=== PATIENT | male | born 1935 | race Caucasian/White ===

== ENCOUNTER 2017-02-10 16:54 | Emergency (ER) | payer MEDICARE, OTHER ==
[2017-02-10 18:03] LABS: BASOPHIL 0.7 % (0-2); EOSINOPHIL 0.3 % (0-7); HCT 32.2 % (42.0-52.0); HGB 10.7 g/dl (13.2-18.0); LYMPHOCYTE 23.2 % (15-48); MCH 32.5 pg (25.0-31.0); MCHC 33.2 g/dL (32.0-36.0); MCV 97.9 fL (78.0-100.0); MONOCYTE 12.6 % (0-12); MPV 10.1 fL (6.0-9.5); NEUTROPHIL 63.2 % (41-80); PLT 171 K/uL (150-400); RBC 3.29 M/uL (4.70-6.00); RDW 17.4 % (11.5-14.0); WBC 6.7 K/uL (4.0-10.5)
[2017-02-10 18:22] LABS: ALBUMIN 2.8 g/dL (3.4-4.8); BILIRUBIN - TOTAL 0.7 mg/dL (0.1-1.0); GLOBULIN (CALCULATION) 2.5 g/dL (2.2-4.2); TOTAL PROTEIN 5.3 g/dL (6.4-8.3)
[2017-02-10 18:24] LABS: CKMB 1.7 ng/mL (0.97-4.94); TROPONIN T 0.016 ng/mL
== END 2017-02-10 22:30 | disposition home or self-care (01) ==
LOC: FER 16:54
PROVIDERS: Internal Medicine
DX: R53.83 Other fatigue (principal); R53.81 Other malaise; R11.0 Nausea; C15.9 Malignant neoplasm of esophagus, unspecified; R00.0 Tachycardia, unspecified; I10 Essential (primary) hypertension; K21.9 Gastro-esophageal reflux disease without esophagitis; I25.2 Old myocardial infarction; Z95.5 Presence of coronary angioplasty implant and graft
CPT/HCPCS: 36415; 71020; 80053; 82550; 82553; 83874; 84484; 85025; 93005

== ENCOUNTER 2022-05-11 08:26 | Emergency (ER) | payer MEDICARE, OTHER ==
[~2022-05-11 08:26] MED LIST: ALLOPURINOL300 MG PO; ASPIRIN EC81 MG PO; COREG 6.25MG6.25 MG PO; LIPITOR 10MG TA10 MG PO; LISINOPRIL5 MG PO
[2022-05-11 09:42] LABS: BASOPHIL 0.4 % (0-2); EOSINOPHIL 1.6 % (0-7); HCT 38.7 % (42.0-52.0); HGB 12.7 g/dl (13.2-18.0); LYMPHOCYTE 8.9 % (15-48); MCH 30.7 pg (25.0-31.0); MCHC 32.8 g/dL (32.0-36.0); MCV 93.5 fL (78.0-100.0); MONOCYTE 10.9 % (0-12); MPV 10.1 fL (6.0-9.5); NEUTROPHIL 77.7 % (41-80); NRBC 0; PLT 188 K/uL (150-400); RBC 4.14 M/uL (4.70-6.00); RDW 12.6 % (11.5-14.0); WBC 12.9 K/uL (4.0-10.5)
[2022-05-11 10:01] LABS: ALBUMIN 3.7 g/dL (3.4-5.0); BILIRUBIN - TOTAL 0.8 mg/dL (0.2-1.0); BUN/CREAT RATIO (CALC) 19.7 RATIO; CREATININE 1.32 mg/dL (0.67-1.17); GLOBULIN (CALCULATION) 3.8 g/dL; POTASSIUM 4.4 mmol/L (3.5-5.1); TOTAL PROTEIN 7.5 g/dL (6.4-8.2)
[2022-05-11 10:19] LABS: CORONAVIRUS 2019 SARS-COV-2 NEGATIVE (NEGATIVE); INFLUENZA A NAA NEGATIVE (NEGATIVE)
== END 2022-05-11 11:31 | disposition home or self-care (01) ==
LOC: FER 08:26
PROVIDERS: Internal Medicine
DX: M54.6 Pain in thoracic spine (principal); R10.32 Left lower quadrant pain; R10.31 Right lower quadrant pain; F17.290 Nicotine dependence, other tobacco product, uncomplicated; Z20.822 Contact with and (suspected) exposure to COVID-19; Z28.310 Unvaccinated for COVID-19
CPT/HCPCS: 36415; 71250; 72128; 72131; 80053; 85025; U0002